=== PATIENT | male | born 1985 | race Caucasian/White ===

== ENCOUNTER → 2023-11-09 11:36 | Outpatient (REF) | payer OTHER, SELFPAY | LOC: PAVMRI 11:36 | PROVIDERS: ATTENDING PHYSICIAN Physician Assistant | DX: G44.52 New daily persistent headache (NDPH) (principal); G43.009 Migraine without aura, not intractable, without status migrainosus | CPT/HCPCS: 70553; A9575 ==

== ENCOUNTER → 2024-10-10 09:26 | Outpatient (REF) | payer OTHER, SELFPAY | LOC: HWRAD 09:26 | PROVIDERS: ATTENDING PHYSICIAN Physician Assistant Medical; FAMILY PHYSICIAN Family Medicine | DX: R14.0 Abdominal distension (gaseous) (principal); R30.9 Painful micturition, unspecified; R63.5 Abnormal weight gain | CPT/HCPCS: 76700 ==

== ENCOUNTER → 2025-07-12 08:30 | Outpatient (REF) | payer OTHER, SELFPAY | LOC: PAVMRI 08:30 | PROVIDERS: ATTENDING PHYSICIAN Internal Medicine; FAMILY PHYSICIAN Family Medicine | DX: K76.89 Other specified diseases of liver (principal) | CPT/HCPCS: 74183; A9575 ==